=== PATIENT | male | born 1955 | race Caucasian/White ===

== ENCOUNTER 2017-11-20 09:07 | Inpatient (IN) | payer SELFPAY ==
[~2017-11-20] VITALS: Ht 172.7 cm; Wt 77.1 kg
[~2017-11-20 09:07] MED LIST: BEN100 PO; D ME PO; SILD25TA6 PO; SULF-170 PO
--- NOTE | 2017-11-20 09:19 | ER Report ---
History and Physical Time Seen By MD: 09:16 HPI/ROS CHIEF COMPLAINT: leg injury HISTORY OF PRESENT ILLNESS: This is a 61 year old male. He was loading some concrete block on a sherry and it fell over onto his left leg. This weighed about 300 lbs. Severe pain and suspects broken leg. Has a puncture would on his lateral lower leg. Normal sensation in the leg. Can move the foot and ankle, but causes pain. Severe pain with attempted weight bearing. No shortness of breath. No chest pain. No fevers or chills. Healthy previous to the injury. Last tetanus was over 10 years ago. Allergies: Coded Allergies: No Known Drug Allergies (Verified , 08/10/07) Home Meds Discontinued Reported Medications D-Methorphan Hb/P-Ephed Hcl (Tussin Cough & Cold Liquid) 118 Ml Liquid, 118 ML PO Q12H 1 08/10/07 Benzonatate 100 MG CAP (Tessalon Perles 100 MG CAP) 100 Mg Cap, 100 MG PO Q6H 1 08/10/07 Sulfamethoxazole/Trimethoprim (Bactrim Ds Tablet) 1 Tab Tablet, 1 TAB PO BID , #20 08/10/07 Sildenafil Citrate (Viagra) 25 Mg Tablet, 25 MG PO 08/10/07 Reviewed Nurses Notes: Yes Constitutional Vital Sign - Last 24 Hours 11/20/17 11/20/17 11/20/17 11/20/17 09:15 09:30 09:33 09:45 Temp 98.1 Pulse 60 ??? Resp 16 B/P (MAP) 132/92 132/80 (97) 112/74 (87) Pulse Ox 95 O2 Delivery Room Air 11/20/17 11/20/17 11/20/17 11/20/17 10:00 10:15 10:30 10:45 Pulse 66 B/P (MAP) 133/82 (99) 138/81 (100) 129/78 (95) 124/81 (95) Pulse Ox 97 96 11/20/17 11/20/17 11/20/17 11/20/17 11:00 11:15 11:30 11:45 Pulse 56 63 B/P (MAP) 127/76 (93) 138/87 (104) 138/86 (103) 132/81 (98) Pulse Ox 96 97 11/20/17 11/20/17 12:00 12:15 Pulse 60 B/P (MAP) 138/100 (113) 133/72 (92) Pulse Ox 98 Physical Exam General: Alert, distress due to pain. Musculoskeletal: Pain and swelling over lower 1/3 of lower leg, Pain with palpation of the leg. Normal in the upper part of the lower leg and the foot and ankle. Pain worsens with any movement as well. Skin: Puncture wound on the medial part of the leg directly over the area of pain into the subcutaneous fat by visual inspection, but suspect it goes further. Neuro: intact throughout the leg. Cardiovascular: Normal pulses and cap refill in the lower leg and foot. Medical Decision Making Data Points Result Diagram: 11/21/17 0554 11/21/17 0554 ED Course/Re-evaluation Clinical Indication for ER IV: Hydration, IV Access ED Course Ancef 1g IV started based on suspicion of open fracture. Tetanus booster given. Imaging done and shows a transverse tibia fracture. Contacted Dr. Claire, who came to the ER to evaluate the patient. He viewed the images online. He contacted Dr. Keith who will be able to do an operative repair on this. The patient was admitted to the hospitalist, Dr. Samaniego, with orthopedic surgery consulting. Continued antibiotics, NPO after midnight, with plan for repair tomorrow. Procedure: Wound care and splinting The wound was anesthetized using 1% lidocaine with epinephrine locally, infused around the wound, about 10cc. The wound was then copiously irrigated with a couple of liters of saline. Antibiotic ointment with Xeroform gauze, then posterior and stirrup half cast applied by the air technician. Neurovascular intact after the splint. Decision to Disposition Date: Nov 20, 2017 Decision to Disposition Time: 12:09 Depart Departure Latest Vital Signs Vital Signs Date Time Temp Pulse Resp B/P (MAP) Pulse Ox O2 Delivery O2 Flow Rate FiO2 11/20/17 12:15 133/72 (92) 11/20/17 12:00 60 98 11/20/17 09:15 98.1 16 Room Air Impression: Primary Impression: Open fracture of tibia Condition: Improved Disposition: Admitted from ER Referrals: VANESSA WEI MD (PCP) New Scripts No Active Prescriptions or Reported Meds Problem Qualifiers Primary Impression: Open fracture of tibia Encounter type: initial encounter Tibia location: shaft Open fracture type : open type I or II Fracture morphology: transverse Fracture alignment: nondisplaced Laterality: left Qualified Codes: S82.225B - Nondisplaced transverse fracture of shaft of left tibia, initial encounter for open fracture type I or II RON TREVINO MD Nov 20, 2017 09:19
[2017-11-20] MEDS ORDERED: MORPHINE 4 MG/ML SDV IVP ONE (09:25)
[2017-11-20] MEDS ORDERED: ceFAZolin(*) 1 GM VIAL 1 GM in NS(*) 0.9% 100 ML ADDVANT BAG 100 ML IV ONE (09:25)
[2017-11-20] MEDS ORDERED: ONDANSETRON 4 MG/2 ML VIAL IVP ONE (09:25)
[2017-11-20] MEDS ORDERED: NS(*) 0.9% 1000 ML BAG 1,000 ML IV ONE (09:25)
[2017-11-20] MEDS ORDERED: HYDROmorphone* 1 MG/ML 1 MG/ML ML IVP ONE (09:45)
--- NOTE | 2017-11-20 09:54 | RADIOLOGY IMAGING REPORT ---
FACILITY: [facility] [place] PATIENT NAME: Zana Rice : 1955 MR: [id number] V: [id number] EXAM DATE: ORDERING PHYSICIAN: RON TREVINO TECHNOLOGIST: [place] [facility] [place] Zana Rice : 1955 Visit/Account:[id number] Date of Sevice: 11/20/2017 TIBIA FIBULA LEFT Indication: Trauma. Injury. Comparison: None available Findings: Frontal and lateral views of the left tibia-fibula are obtained. There is an acute, transverse fract ure of the shaft of the tibia at the junction of the middle and the distal thirds. There is posterio r and lateral displacement of the distal fracture fragment by approximately one cortex width. There is a defect of the soft tissues along the medial margin of the tibia at the level of the fracture. N umerous flecks of gas are seen within the soft tissues. Many of these flecks of gas are in close pro ximity to the fracture margin. Additional areas of gas are seen anteriorly on the lateral view. Con sideration must be given to an open tibia fracture. Correlate clinically. No additional fractures a re seen. No radiopaque foreign body identified. IMPRESSION: 1. Transverse fracture of the left tibia at the junction of the middle and distal thirds. 2. Soft tissue defect with multiple flecks of gas within the soft tissues at the level of the fractu re site. Concern is for an open left tibia fracture. Correlate with physical exam. Report Dictated By: Morales Leal at 11/20/2017 9:47 AM Report E-Signed By: Morales Leal at 11/20/2017 9:50 AM WSN:[email or web address]
[2017-11-20] MEDS ORDERED: DIPHTH/TETANUS/ACEL. PERTUSSIS IM ONLY ONE (10:05)
[2017-11-20 13:15] VITALS: BP 150/82
[2017-11-20] MEDS ORDERED: MORPHINE 2 MG/ML SYR IVP PRN ×2 (13:45→14:05)
[2017-11-20] MEDS: HYDROmorphone HCL 2 MG/ML SDV IVP PRN ×2 (14:12→21:20)
[2017-11-20] MEDS ORDERED: INFLUENZA VIRUS VAC 0.5 ML SYR IM ONLY ONE (14:25)
[2017-11-20] MEDS ORDERED: FAMOTIDINE(*) 20MG/50ML PREMIX 50 ML IVPB PRN (14:25)
[2017-11-20] MEDS ORDERED: FLUSH 10 ML SYR IVP PRN (14:25)
[2017-11-20] MEDS ORDERED: CALCIUM CARBONATE 500 MG CHEW PO PRN (14:25)
[2017-11-20] MEDS ORDERED: ACETAMINOPHEN 325 MG TAB PO PRN (14:25)
[2017-11-20] MEDS ORDERED: ONDANSETRON 4 MG/2 ML VIAL IVP PRN (14:25)
--- NOTE | 2017-11-20 15:41 | History & Physical ---
History of Present Illness Chief Complaint Leg Pain after trauma History of Present Illness 61 Y male presented to ER with leg pain and open wound after being injured by cart with concrete barrier loaded on it. Reported immediate pain and inability to bear weight after injury when the cart rolled intolleg. Noted small opening in leg away from point of impact and presented for evaluation. In ER xray revealed open transverse tibial fracture. Given dose cefazolin and admitted after consulting Dr Claire, plan for ORIF w/ Dr Gould tomorrow. Pain controlled with IV Dilaudid and morphine. Reports dysphagia for several years with endoscopy which demonstrated esophageal stricture in the . He underwent dilation once but subsequently elected to manage by diet alone. Denies any other significant medical history or home medications. History Problems: (1) Esophageal dysphagia Onset Date: ~ 11/1989 Status: Chronic Other Past Medical Hx Esophageal stricture otherwise denies significant medical history. Home Meds Discontinued Reported Medications D-Methorphan Hb/P-Ephed Hcl (Tussin Cough & Cold Liquid) 118 Ml Liquid, 118 ML PO Q12H 1 08/10/07 Benzonatate 100 MG CAP (Tessalon Perles 100 MG CAP) 100 Mg Cap, 100 MG PO Q6H 1 08/10/07 Sulfamethoxazole/Trimethoprim (Bactrim Ds Tablet) 1 Tab Tablet, 1 TAB PO BID , #20 08/10/07 Sildenafil Citrate (Viagra) 25 Mg Tablet, 25 MG PO 08/10/07 Allergies: Coded Allergies: No Known Drug Allergies (Verified , 08/10/07) Patient History: Family history was reviewed; no changes noted. Hx Smoking: No Smoking Status: Never Smoker Hx Alcohol Use: Yes Alcohol Use: Occassional Hx Substance Use Disorder: No Social Drug Use: Never History of IV Drug Use: No Review of Systems Constitutional: No Fever, No Weight Loss, No Chills Neurological: No Syncope, No Confusion, No Slurred Speech Eyes: No Vision Change, No Loss of Vision ENT: No Hearing Loss, No Sinus Congestion, No Sore Throat Cardiovascular: No Chest Pain, No Palpitations Respiratory: No Shortness of Breath, No Cough, No Wheezing Gastrointestinal: No Nausea, No Vomiting, No Diarrhea, No Constipation Genitourinary: No Dysuria, No Urinary Incontinence Musculoskeletal: Pain, Impaired Mobility Psychiatric: No Depression, No Anxiety Other Open wound L leg Exam Vital Signs Vital Signs Date Time Temp Pulse Resp B/P (MAP) Pulse Ox O2 Delivery O2 Flow Rate FiO2 11/20/17 14:37 98 Nasal Cannula 3.0 11/20/17 13:15 98.1 70 16 150/82 (104) General Appearance: Alert, Awake, Afebrile Neuro: No Gross deficits Eyes: PERRLA ENT: Normal Neck: No Masses Cardiovascular: Normal Rhythm & Peripheral Pulses Respiratory: No Respiratory Distress, Clear to Auscultation Chest: No Masses, No Tenderness GI: Abd Soft and Non-Tender : Normal Lymph: No Adenopathy Musculoskeletal: Other (Pain L leg, dry intact clean dressing over site of injury) Extremities: Pulses (L DP pulse palpable, toes cool good capillary refill), Perfused Integumentary: Skin Intact without Lesion / Mass (other than wound to L leg, clean dry dressing intact) Psych: Alert & Oriented X3, Appropriate Mood & Affect Medical Decision Making Pre-Admit Course ED Medications Ancef, Dilaudid, morphine, tetanus booster Medical Record Review: Yes Assessment and Plan Problems: (1) Open fracture of tibia Onset Date: ~ 11/20/2017 Status: Acute Assessment & Plan: Patient presented with L open transverse fracture of the Tibia. Dr Claire consulted, surgery planned 11.21.[address] Keith. Started on cefazolin, pain control with IV Dilaudid and morphine. EKG, CXR ordered and pending prior to surgery. BMP and CBC ordered for am prior to surgery. NPO at midnight. (2) Esophageal dysphagia Onset Date: ~ 11/1989 Status: Chronic Assessment & Plan: Stable, managed by diet. Medication regimens will necessitate consideration. Condition Stable Time Spent on Plan of Care: < 30 min Consult Orthopedic surgery Venous Thromboembolism VTE Risk Physician Assess for VTE Risk: Yes Antithrombotics Is Pt On Any Antithrombotics?: No Prophylaxis Tx Contraindicated Pharmacological Contraindicati: Surgical Contraindication Exam Sepsis Risk: No Definite Risk Problem Qualifiers (1) Open fracture of tibia: Encounter type: initial encounter Tibia location: shaft Open fracture type: open type I or II Fracture morphology: transverse Fracture alignment: nondisplaced Laterality: left Qualified Codes: S82.225B - Nondisplaced transverse fracture of shaft of left tibia, initial encounter for open fracture type I or II MALU COTE DO Nov 20, 2017 15:41
[2017-11-20 16:46] LABS: PLATELET COUNT, AUTOMATED 226 K/uL (150-450)
[2017-11-20] MEDS ORDERED: NORMOSOL R SOLN(*) 1000 ML BAG 1,000 ML IV ONE (16:55)
[2017-11-20] MEDS ORDERED: NS(*) 0.9% 500 ML BAG 500 ML IV PRN (16:55)
[2017-11-20] MEDS ORDERED: CEFAZOLIN PREM 1 GM/D5W 50 ML 50 ML IVPB SCH (17:00)
[2017-11-20] MEDS: ceFAZolin(*) 1 GM VIAL 1 GM in NS(*) 0.9% 100 ML ADDVANT BAG 100 ML IVPB SCH (17:15)
--- NOTE | 2017-11-20 18:10 | RADIOLOGY IMAGING REPORT ---
FACILITY: [facility] PATIENT NAME: Zana Rice : 1955 MR: [id number] V: [id number] EXAM DATE: ORDERING PHYSICIAN: MALU KOWALSKI TECHNOLOGIST: Location: [facility] Patient: Zana Rice : 1955 Visit/Account:[id number] Date of Sevice: 11/20/2017 CHEST SINGLE AP HISTORY: Chest pain. COMPARISON: None FINDINGS: Cardiomediastinal contours: The heart size is normal. Lungs and pleura: There is no finding of an infiltrate, lymphadenopathy or pleural effusion. Bones/soft tissues: There are no findings of a fracture. IMPRESSION: Normal portable chest x-ray. Report Dictated By: Conner Mccoy MD at 11/20/2017 6:05 PM Report E-Signed By: Conner Mccoy MD at 11/20/2017 6:06 PM WSN:[id number]
[2017-11-20 18:41] VITALS: BP 132/84
--- NOTE | 2017-11-20 22:53 | EKG ---
FACILITY: [facility] - [place] PATIENT NAME: YULISA PATTERSON : [id number] MR: [id number] V: [id number] EXAM DATE: ORDERING PHYSICIAN: MALU KOWALSKI TECHNOLOGIST: ALBERTO Test Reason : PRE-OP Blood Pressure : / mmHG Vent. Rate : 068 BPM Atrial Rate : 068 BPM P-R Int : 138 ms QRS Dur : 102 ms QT Int : 414 ms P-R-T Axes : 031 -03 001 degrees QTc Int : 440 ms Normal sinus rhythm Normal ECG No previous ECGs available Confirmed by CARLOS CARDENAS ([id number]) on 11/21/2017 5:32:40 AM Referred By: MARIO KOWALSKI Confirmed By:CARLOS CARDENAS
[2017-11-21] VITALS (17 sets, daily range): BP systolic 110–153; BP diastolic 73–97; Ht 172.7 cm; Wt 77.1 kg
[2017-11-21] MEDS: ceFAZolin(*) 1 GM VIAL 1 GM in NS(*) 0.9% 100 ML ADDVANT BAG 100 ML IVPB SCH ×3 (01:06→17:06)
[2017-11-21 06:03] LABS: PLATELET COUNT, AUTOMATED 187 K/uL (150-450)
[2017-11-21] MEDS ORDERED: ACETAMINOPHEN(*)1000 MG/100 ML 100 ML IVPB PRN ×2 (08:40→17:40)
[2017-11-21] MEDS: HYDROmorphone HCL 2 MG/ML SDV IVP PRN ×2 (08:48→11:36)
--- NOTE | 2017-11-21 09:36 | CARSON H&P ---
DATE OF ADMISSION: November 20, 2017 HISTORY OF PRESENT ILLNESS This is 61-year-old male who was trying to move a concrete slab that weighed approximately 300 pounds on arnel and it fell on his left leg. He was seen in the ER, where Dr. Eubanks performed a history and physical exam. Orthopedics was consulted for an isolated left tibial fracture, open. His is present in the ER room. The patient is in mild distress but reports he is not in significant pain. He relates the cause of the injury to me. 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 ALLERGIES He reports he has no drug allergies. CURRENT MEDICATIONS I asked him about any medications and he denies. PAST MEDICAL HISTORY Patient reports he has hiatal hernia with GERD and had dilation procedure performed several years ago. He describes it as having difficulty swallowing on occasion. Otherwise, he feels like he is healthy and has no other reported history. His only complaint is his left leg. PHYSICAL EXAMINATION Left leg is evaluated and at the junction of the middle and distal thirds over the anterior tibia there is a small open area of fat noted. This is approximately 10 mm, possibly a little bit greater. There is no exposed bone at this time. Distally, motor and sensory are grossly intact, although ankle and toe range of motion is uncomfortable for him and less than the opposite side secondary to that discomfort. He reports no knee pain to palpation. RADIOGRAPHS X-rays are reviewed with fracture of the tibia, primarily transverse, at the junction of the middle and distal thirds with slight lateralization of about 10 % on the AP and slightly anterior displaced on the lateral. Fibula is intact. ASSESSMENT/PLAN Grade 1 open tibial shaft fracture. ER physician was recommended to wash this out and place him in a splint. He will be admitted to the hospitalist team for IV antibiotics. 1 gram of Ancef every eight hours is recommended. He will be NPO after midnight. Dr. Keith will be consulting in the morning for irrigation and debridement and intramedullary nailing. This process was explained to the patient and at the ER visit. I have answered questions. Again, Dr. Keith will visit with him tomorrow morning and do a formal consent. [facility]
--- NOTE | 2017-11-21 10:44 | Hospitalist Progress Note ---
Subjective Progress Notes Subjective He was admitted with open tibia fracture. He had no acute events overnight. Patient Complains of: Cardiovascular: No: Chest Pain Respiratory: No: Shortness of Breath Physical Exam Vital Signs Date Time Temp Pulse Resp B/P (MAP) Pulse Ox O2 Delivery O2 Flow Rate FiO2 11/21/17 07:24 87 11/21/17 07:09 Nasal Cannula 1.0 11/21/17 07:09 98.9 81 14 133/73 (93) Intake and Output 11/22/17 07:00 Output Total 750 ml Balance -750 ml Output Urine Total 750 ml # Voids 1 General Appearance: Alert, Awake, No Acute Distress, Afebrile Neuro: No Gross deficits Cardiovascular: Regular Rate and Rhythm Respiratory: No Respiratory Distress, Clear to Auscultation Extremities: Perfused Psych: Alert & Oriented X3, Appropriate Mood & Affect Result Diagram: 11/21/17 0554 11/21/17 0554 Assessment and Plan Problems: (1) Open fracture of tibia Onset Date: ~ 11/20/2017 Status: Acute Assessment & Plan: Patient presented with L open transverse fracture of the Tibia. Dr Claire consulted, surgery planned 11.21.[address] Keith. Started on cefazolin, pain control with IV Dilaudid. EKG, CXR and labs ordered prior to surgery. NPO at midnight. (2) Esophageal dysphagia Onset Date: ~ 11/1989 Status: Chronic Assessment & Plan: Stable, managed by diet. Medication regimens will necessitate consideration. Exam Sepsis Risk: No Definite Risk Problem Qualifiers (1) Open fracture of tibia: Encounter type: initial encounter Tibia location: shaft Open fracture type: open type I or II Fracture morphology: transverse Fracture alignment: nondisplaced Laterality: left Qualified Codes: S82.225B - Nondisplaced transverse fracture of shaft of left tibia, initial encounter for open fracture type I or II DAVIAN GUAJARDO COMPOUND MIXER Nov 21, 2017 10:44
[2017-11-21] MEDS ORDERED: fentaNYL CITR 250 MCG/5 ML AMP ONE (11:58)
[2017-11-21] MEDS ORDERED: LIDOCAINE MPF 1% 5 ML VIAL ONE (11:59)
[2017-11-21] MEDS ORDERED: PROPOFOL EMUL(*) 10MG/ML 20 ML 20 ML ONE (11:59)
[2017-11-21] MEDS ORDERED: ONDANSETRON 4 MG/2 ML VIAL ONE (11:59)
[2017-11-21] MEDS ORDERED: DEXAMETHASONE SOD PHOS 10MG/ML ONE (11:59)
[2017-11-21] MEDS ORDERED: NORMOSOL R SOLN(*) 1000 ML BAG 1,000 ML IV ONE (12:00)
[2017-11-21] MEDS ORDERED: FAMOTIDINE(*) 20MG/50ML PREMIX 50 ML IVPB ONE (12:00)
[2017-11-21] MEDS ORDERED: ceFAZolin 1 GM VIAL ONE (13:21)
[2017-11-21] MEDS ORDERED: KETAMINE HCL 200 MG/20 ML MDV ONE (13:26)
[2017-11-21] MEDS ORDERED: LABETALOL HCL 100 MG/20ML VIAL ONE (13:30)
[2017-11-21] MEDS ORDERED: ROCURONIUM BROM 10 MG/ML 10 ML ONE (13:30)
[2017-11-21] MEDS ORDERED: SUGAMMADEX SOD 200 MG/2 ML SDV ONE (13:40)
[2017-11-21] MEDS ORDERED: HYDROGEN PEROXID 3% 473 ML BTL TP ONE (15:24)
[2017-11-21] MEDS ORDERED: fentaNYL CITR 100 MCG/2 ML AMP ONE (16:15)
[2017-11-21] MEDS ORDERED: diphenhydrAMINE 50 MG/ML VIAL IVP PRN (16:20)
[2017-11-21] MEDS ORDERED: PROMETHAZINE 25 MG/ML 1 ML AMP IVP PRN (16:20)
[2017-11-21] MEDS ORDERED: ACETAMINOPHEN 325 MG TAB PO PRN (16:20)
[2017-11-21] MEDS ORDERED: MAGNESIUM HYDROXIDE* 30ML UDCP PO PRN (16:20)
[2017-11-21] MEDS ORDERED: BISACODYL 10 MG SUPP PR PRN (16:20)
[2017-11-21] MEDS ORDERED: APAP/HYDROCODONE 325/7.5 TAB PO PRN (16:20)
[2017-11-21] MEDS ORDERED: BENZOCAINE/MENTHOL 1 EACH LOZG PO PRN (16:20)
[2017-11-21] MEDS ORDERED: DIAZEPAM 5 MG TAB PO PRN (16:20)
[2017-11-21] MEDS ORDERED: ZOLPIDEM TARTRATE 5 MG TAB PO PRN (16:20)
[2017-11-21] MEDS ORDERED: NORMOSOL R SOLN(*) 1000 ML BAG 1,000 ML IV PRN (16:20)
[2017-11-21] MEDS ORDERED: diphenhydrAMINE 25 MG CAP PO PRN (16:20)
[2017-11-21] MEDS: IBUPROFEN 800 MG TAB PO SCH (17:00)
--- NOTE | 2017-11-21 17:19 | RADIOLOGY IMAGING REPORT ---
FACILITY: [facility] - [place] PATIENT NAME: Zana Rice : 1955 MR: [id number] V: [id number] EXAM DATE: ORDERING PHYSICIAN: ELENA JOYNER TECHNOLOGIST: Location: [facility] Patient: Zana Rice : 1955 Visit/Account:[id number] Date of Sevice: 11/21/2017 TIBIA FIBULA LEFT History: Left tibia fracture. Comparison study: November 20, 2017. Findings: Comparison the previous study shows that there has been placement of an intramedullary gisela for ORIF of an oblique fracture involving the distal diaphysis of the left tibia. Definitive fibula r fracture cannot be seen. IMPRESSION: Status post ORIF of a oblique fracture of the distal left tibia with an intramedullary ro d. Report Dictated By: Conner Mccoy MD at 11/21/2017 5:14 PM Report E-Signed By: Conner Mccoy MD at 11/21/2017 5:16 PM WSN:[email or web address]
[2017-11-21] MEDS ORDERED: HYDROmorphone HCL 2 MG/ML SDV IVP PRN (17:45)
--- NOTE | 2017-11-21 18:35 | OPERATIVE REPORT 1 ---
EVENT DATE: November 20, 2017 SURGEON: Tony Keith MD ANESTHESIOLOGIST: Aidan Khan MD ANESTHESIA: General. SAFETY AND HEALTH CONSULTANT: ZAMZAM Oh PREOPERATIVE DIAGNOSIS Left grade 2 open tibial shaft fracture. POSTOPERATIVE DIAGNOSIS Left grade 2 open tibial shaft fracture. PROCEDURES PERFORMED 1. Irrigation and debridement of open fracture wound, skin, subcutaneous tissue , muscle, fascia, and bone. 2. Intramedullary gisela fixation, left tibial shaft fracture. ESTIMATED BLOOD LOSS 200 mL DRAINS None. SPECIMENS None. COMPLICATIONS None apparent. IMPLANTS USED [place] 345 mm x 10 tibial nail. INDICATIONS Zana sustained an injury from a sherry that struck his leg while loaded with concrete. It was an open fracture. He initially had provisional lavage and has been placed on antibiotics and splinted. Surgery is indicated at this time for formal irrigation and debridement to minimize infection risk and to stabilize the fracture. DESCRIPTION OF PROCEDURE Patient was taken to the operating room. He was placed supine on the operating table. General anesthesia was induced. Additional antibiotics with Ancef were administered IV. He is positioned with a tourniquet on his high thigh and then the leg positioned in a well-padded arthroscopic leg colby. Contralateral leg is placed in an abducted, externally rotated position in a well-padded leg colby out of the field. Imaging is confirmed for satisfactory views. Foot of the table is dropped out so the knee can hang with no pressure on the popliteal fossa. Subsequently, left lower extremity is prepped and draped in the usual sterile fashion for orthopedic surgery. Initially, the traumatic wound which was about 15 to 20 mm over the posteromedial tibia near the fracture line is extended a centimeter proximally and distally. A gloved finger is introduced, and the extensive soft tissue damage is identified. The extent of this traumatic dissection is noted. The wound is then provisionally lavaged with 2 L with bulb syringe, and then a systematic debridement is performed starting with damaged dermis. There is some crushed skin superficially, but this is not bad enough to warrant excision of the skin. It looks like it is viable. Subcutaneous tissue is debrided next. Care is taken to identify and coagulate branches of the saphenous vein, followed by debridement of any fascia and some mildly devitalized periosteum. There is no large stripping of the periosteum. Dissection is carried down to the fracture site, and then additional lavage with another liter of saline is performed. This is visually inspected, and there is no macroscopic debris. At this point, the fracture wound is left open , although this will be loosely reapposed at the end of the procedure. It is left open to facilitate anatomic reduction. Next, the limb is exsanguinated with an Esmarch bandage. The tourniquet is insufflated to 250 mmHg. A 2-inch incision is made along the medial border of the patella, carried down through the skin and subcutaneous tissue to the retinaculum. The retinaculum is opened without entering the joint, carried distally. Blunt dissection is carried back behind the back patellar tendon to find a flat spot for entry point for the tibial nail just distal to the joint line center in the midline. A starting awl was introduced at this site, and fluoroscopic imaging was used to confirm appropriate placement. A starting guide pin is introduced, and the opening reamer is used to open the space. A bead-tip guide pin is then placed on a T handle. The tip is bent for mobilization. This is advanced down just short of the fracture site. While I manually reduced the fracture site, the bead-tipped guide pin was advanced into a center-center position distally down to the physeal scar above the ankle joint. After confirming ideal placement, I should note that the tourniquet is deflated as soon as exposure is obtained, and initial opening reaming is performed, but at this point with no tourniquet inflated, sterile reaming is performed starting at 9 and working up to 11.5. A bit of endosteal chatter is noted at the diaphysis. The fracture is distal to the diaphysis. The center-center position of the guide pin will assure anatomic reduction. A 10 x 345 gisela is selected after direct measurement. This is closed with an estimated preoperative length needed for the gisela which is measured at 350 by the x-rays. The 345 gisela is loaded on the insertion device and advanced and then passed across the fracture site and down to the physeal scar. Fluoroscopic imaging is used to assure the appropriate depth of the nail is achieved. Anatomic reduction is maintained. Next, with the foot supported on a well-padded Gonzalez stand, perfect clark's point is obtained distally for distal freehand cross locking, which is performed for two screws using standard technique. Two screws are needed since the fracture is distal to the isthmus. After assuring appropriate rotational alignment, the gisela is gently back slapped to impact the fracture, and the appropriate jig is loaded onto the insertion device and used to place a dynamic cross-locking screw through the proximal portion of the gisela to allow dynamic compression, but to permit good rotational control of the fracture. Zero-degree end cap is then placed, and final images are obtained. Wound is copiously lavaged. Compartments are soft. Meticulous hemostasis is assured. The retinacular incision is closed with a running 0 Vicryl, the skin with 3-0 Vicryl, and surgical jai applied. Surgical jai are used for the cross-lock wounds, and the open fracture wound is lavaged one more time with a liter and then closed, loosely approximated with 2- 0 nylon simple sutures. Xeroform is applied, 4 x 4 dry, sterile dressing, a posterior splint with the ankle in neutral dorsiflexion, and a soft wrap at the knee. PLAN Plan for postoperative rehab is going to be postoperative antibiotics until tomorrow morning, followed by home discharge satisfactory pain control. A wound check will be performed in two to three days. If things look good, we will likely transition to a removable walker boot and progress weightbearing as tolerated. [facility] HOSPITALEnid
--- NOTE | 2017-11-21 19:58 | RADIOLOGY IMAGING REPORT ---
FACILITY: [facility] [place] PATIENT NAME: Zana Rice : 1955 MR: [id number] V: [id number] EXAM DATE: ORDERING PHYSICIAN: ELENA JOYNER TECHNOLOGIST: Location: [facility] Patient: Zana Rice : 1955 Visit/Account:[id number] Date of Sevice: 11/21/2017 Exam: C-ARM FLUORO 1 HR Indication: LEFT TIBIAL NAILING, RAD Comparison: 11/21/2017 Findings: Fluoroscopy is provided for intramedullary nail placement of the tibia. Images show central ly placed intramedullary nail. Fluoroscopy time 86.9 seconds DOSE: DAP was 0.00385 mGy*m2. IMPRESSION: Fluoroscopy for orthopedic surgery Report Dictated By: Garry Smith at 11/21/2017 7:54 PM Report E-Signed By: Garry Smith at 11/21/2017 7:55 PM WSN:[id number]
[2017-11-22] VITALS: BP 114/69
[2017-11-22 00:10] VITALS: BP 115/63
[2017-11-22] MEDS: ceFAZolin(*) 1 GM VIAL 1 GM in NS(*) 0.9% 100 ML ADDVANT BAG 100 ML IVPB SCH ×2 (00:16→08:47)
[2017-11-22] MEDS: IBUPROFEN 800 MG TAB PO SCH ×2 (01:04→09:20)
[2017-11-22 06:09] VITALS: BP 121/69
[2017-11-22 08:34] VITALS: BP 137/98
[2017-11-22] MEDS ORDERED: ASPIRIN 325 MG TAB PO SCH (09:00)
[2017-11-22] MEDS ORDERED: HYDR473S9 PO (09:22)
[2017-11-22] MEDS ORDERED: CEPH250S35 PO (09:22)
[2017-11-22] MEDS ORDERED: ASPI81TA94 PO (09:33)
--- NOTE | 2017-11-22 11:27 | Hospitalist Depart ---
Discharge Summary Reason for Hosp/Final Diag: (1) Open fracture of tibia Onset Date: ~ 11/20/2017 Status: Acute Hospital Course & Plan: Patient presented with L open transverse fracture of the Tibia. Dr Claire consulted, surgery planned 11.21.[address] Keith. Started on cefazolin, pain controlled with IV Dilaudid. EKG, CXR and labs were ordered prior to surgery. He will be Non-weight bearing per Dr. Keith. He will follow up at [facility] Monday. He will be sent home with Cephalexin and Lortab elixir (secondary to esophageal strictures). (2) Esophageal dysphagia Onset Date: ~ 11/1989 Status: Chronic Hospital Course & Plan: Stable, managed by diet. He will take chewable aspirin four tablets daily for 30 days for DVT prophylaxis secondary to his esophagus. His antibiotic and pain medication were given in oral solution. Departure Latest Vital Signs Vital Signs 11/22/17 08:34 Temp 98.6 Pulse 89 Resp 14 B/P (MAP) 137/98 (111) Weight (Pounds): 170 Result Diagram: 11/21/17 0554 11/21/17 0554 Condition: Improved Discharge: Home, Self Care Discharge Instructions Home Meds Active Scripts Aspirin (ASPIRIN) 81 Mg Tab.chew, 324 MG PO QDAY for 30 Days, #120 TAB.CHEW Prov:DAVIAN GUAJARDO [facility] 11/22/17 Cephalexin 250 Mg/5 Ml Susp (KEFLEX 250 MG/5 ML SUSP) 250 Mg/5 Ml Susp.recon, 500 MG PO QID for 5 Days, #200 ML Prov:DAVIAN GUAJARDO [facility] 11/22/17 Hydrocodone/Acetaminophen 10/300 MG/15 ML (Lortab 10 mg-300 mg/15 ml Elxr) 473 Ml Solution, 15 ML PO Q6H Y for PAIN, #420 ML Prov:DAVIAN GUAJARDO [facility] 11/22/17 Discontinued Reported Medications D-Methorphan Hb/P-Ephed Hcl (Tussin Cough & Cold Liquid) 118 Ml Liquid, 118 ML PO Q12H 1 08/10/07 Benzonatate 100 MG CAP (Tessalon Perles 100 MG CAP) 100 Mg Cap, 100 MG PO Q6H 1 08/10/07 Sulfamethoxazole/Trimethoprim (Bactrim Ds Tablet) 1 Tab Tablet, 1 TAB PO BID , #20 08/10/07 Sildenafil Citrate (Viagra) 25 Mg Tablet, 25 MG PO 08/10/07 Diet: Regular Activity: As Tolerated Special Instructions: Follow up with Dr Keith on MondayNovember 24 at 1:00pm at [facility]. Come in 10 minutes before your appointment to do paperwork. Take either one regular strength Aspirin (325mg) a day (you may crush it) OR four baby Aspirin (81mg) a day (you can chew those). Do NOT take the liquid NSAID that you take other times. It is not adequate for blood clot prevention. Venous Thromboembolism Antithrombotics Is Pt On Any Antithrombotics?: No Problem Qualifiers (1) Open fracture of tibia: Encounter type: initial encounter Tibia location: shaft Open fracture type: open type I or II Fracture morphology: transverse Fracture alignment: nondisplaced Laterality: left Qualified Codes: S82.225B - Nondisplaced transverse fracture of shaft of left tibia, initial encounter for open fracture type I or II DAVIAN GUAJARDO [employer] Nov 22, 2017 11:26
== END 2017-11-22 10:55 | disposition home or self-care (01) | DRG 494 ==
LOC: ER 09:16 → MED 12:24
PROVIDERS: ADMIT Internal Medicine; ATTEND Internal Medicine
PROC: 0QSH06Z Reposition Left Tibia with Intramedullary Internal Fixation Device, Open Approach (ICD-10-PCS; principal; 2017-11-20)
DX: S82.222B Displaced transverse fracture of shaft of left tibia, initial encounter for open fracture type I or II (principal); R13.10 Dysphagia, unspecified; K21.9 Gastro-esophageal reflux disease without esophagitis; Z23 Encounter for immunization; W20.8XXA Other cause of strike by thrown, projected or falling object, initial encounter; Y93.89 Activity, other specified; Y99.0 Civilian activity done for income or pay
CPT/HCPCS: 36415; 71045; 76000; 82310; 82374; 82435; 82565; 82947; 84132; 84295; 84520; 85025; 90715; 93005; 97161; 99285; C1713; J0131; J0690; J1100; J1170; J2001; J2270; J2405; J2704; J3010; J3490; J7030; J7040; J7050